=== PATIENT | female | born 1990 | race Caucasian/White ===

== ENCOUNTER 2018-12-28 11:06 | Emergency (ER) | payer BC ==
[~2018-12-28] VITALS: Ht 167.6 cm; Wt 49.9 kg
[2018-12-28] MEDS ORDERED: CLIN300 PO (12:07)
== END 2018-12-28 12:17 | disposition home or self-care (01) ==
LOC: ER 11:06
DX: K04.7 Periapical abscess without sinus (principal); Z88.0 Allergy status to penicillin
CPT/HCPCS: 41800; 96374-59; 99282-25

== ENCOUNTER → 2020-03-08 | Outpatient (CLI) | payer BC ==
[~2020-03-08] MED LIST: CLIN300 PO
[2020-03-08 11:31] LABS: Source, Urine Clean Catch
[2020-03-08 14:08] LABS: Amorphous Mod (0-Heavy); Bacteria Few /hpf; Squamous Epithelial Cells Few /hpf (Few)
== END | disposition home or self-care (01) ==
LOC: LAB 10:38 → LAB SHORT 10:38
PROVIDERS: Obstetrics & Gynecology
DX: Z34.01 Encounter for supervision of normal first pregnancy, first trimester (principal)
CPT/HCPCS: 81015; 87086

== ENCOUNTER → 2020-07-11 | Outpatient (CLI) | payer BC ==
[~2020-07-11] MED LIST changes: +Aspir 8181 MG PO; +IBU800 M1 PO; +PRENATAL TABLE1 EAC2 PO; +Percocet 5-3251 EACH PO
[2020-07-11 13:29] LABS: BASOPHILS ABSOLUTE AUTO 0.05 K/mm3 (0.00-0.23); BASOPHILS PERCENT AUTO 1 % (0-2); EOSINOPHILS ABSOLUTE AUTO 0.08 K/mm3 (0.00-0.68); EOSINOPHILS PERCENT AUTO 1 % (0-6); Hematocrit 35.2 % (33.0-51.0); Hemoglobin 11.7 g/dL (11.5-16.0); IMMATURE GRAN ABSOLUTE AUTO 0.12 K/mm3 (0.00-0.10); IMMATURE GRAN PERCENT AUTO 1 % (0-1); LYMPHOCYTES ABSOLUTE AUTO 1.45 K/mm3 (0.84-5.20); LYMPHOCYTES PERCENT AUTO 16 % (21-46); MONOCYTES ABSOLUTE AUTO 0.57 K/mm3 (0.16-1.47); MONOCYTES PERCENT AUTO 6 % (4-13); Mean Corpuscular HGB 33.2 pg (26.0-34.0); Mean Corpuscular HGB Conc 33.2 g/dL (31.5-36.5); Mean Corpuscular Volume 100 fL (80-100); Mean Platelet Volume 10.1 fL (9.1-12.4); NEUTROPHILS ABSOLUTE AUTO 7.03 K/mm3 (1.96-9.15); NEUTROPHILS PERCENT AUTO 76 % (41-73); Platelet Count 174 K/mm3 (150-400); RDW Coefficient Variation 12.6 % (11.7-14.2); RDW Standard Deviation 46.4 fL (35.1-46.3); Red Blood Cell Count 3.52 M/mm3 (3.80-5.20)
== END | disposition home or self-care (01) ==
LOC: LAB SHORT 10:10 → PLD 10:10
PROVIDERS: Obstetrics & Gynecology
DX: Z34.02 Encounter for supervision of normal first pregnancy, second trimester (principal)
CPT/HCPCS: 82950; 85025

== ENCOUNTER 2020-09-11 08:50 | Inpatient (IN) | payer BC ==
[~2020-09-11] VITALS: Ht 167.6 cm; Wt 61.8 kg
[~2020-09-11 08:50] MED LIST changes: -IBU800 M1 PO; -Percocet 5-3251 EACH PO
[2020-09-11 09:23] LABS: BASOPHILS ABSOLUTE AUTO 0.03 K/mm3 (0.00-0.23); BASOPHILS PERCENT AUTO 1 % (0-2); EOSINOPHILS ABSOLUTE AUTO 0.09 K/mm3 (0.00-0.68); EOSINOPHILS PERCENT AUTO 2 % (0-6); Hematocrit 37.7 % (33.0-51.0); Hemoglobin 12.4 g/dL (11.5-16.0); IMMATURE GRAN ABSOLUTE AUTO 0.03 K/mm3 (0.00-0.10); IMMATURE GRAN PERCENT AUTO 1 % (0-1); LYMPHOCYTES ABSOLUTE AUTO 1.73 K/mm3 (0.84-5.20); LYMPHOCYTES PERCENT AUTO 28 % (21-46); MONOCYTES ABSOLUTE AUTO 0.58 K/mm3 (0.16-1.47); MONOCYTES PERCENT AUTO 10 % (4-13); Mean Corpuscular HGB 30.8 pg (26.0-34.0); Mean Corpuscular HGB Conc 32.9 g/dL (31.5-36.5); Mean Corpuscular Volume 94 fL (80-100); Mean Platelet Volume 11.6 fL (9.1-12.4); NEUTROPHILS ABSOLUTE AUTO 3.64 K/mm3 (1.96-9.15); NEUTROPHILS PERCENT AUTO 60 % (41-73); Platelet Count 141 K/mm3 (150-400); RDW Coefficient Variation 12.3 % (11.7-14.2); RDW Standard Deviation 42.2 fL (35.1-46.3); Red Blood Cell Count 4.02 M/mm3 (3.80-5.20)
--- NOTE | 2020-09-11 11:27 | NUR ---
09/11/20 Demond7 Xena Velázquez 1051 DELIVERY BABY A VIABLE MALE INFANT, WEIGHT 2925GM, 6^ 7OZ, HEAD 13.5 INCHES, CHEST 12.5 INCHES, LENGTH 18.75 INCHES, APGARS 9/9, 1052 DELIVERY BABY B, VIABLE FEMALE WEIGHT 2640 5# 13OZ, HEAD 13.75 INCHES, CHEST 12 INCHES, LENGTH 18 INCHES, APGARS 9/9, PLACENTA SENT TO PATHOLOGY
--- NOTE | 2020-09-11 16:37 | NUR ---
RN/LC ROUNDED TO HELP W/ . PT STATES IS GOING WELL. SHE HAS BEEN ONE BABY AT A TIME IN [facility], THEN FOB IS SUPPLEMENTING BABY W/ FORMULA AFTER BREASTFEED WHILE MOM LATCHES SECOND BABY. PT DENIES PAIN W/ FEEDING. INSTRUCTED PT ON CORRECT POSITIONING, LATCHING, NIPPLE SHAPE AFTER FEED, AND FREQUENCY OF FEEDING. REVIEWED GUIDE TO BOOKLET. PT AND SO LOVING W/ TWINS AND EACH OTHER, BOTH DENY ANY FURTHER QUESTIONS OR CONCERNS.
--- NOTE | 2020-09-11 18:30 | NUR ---
PT HAD PRIMARY C/S THIS AM FOR BREECH PRESENTATION. PT HAS 18G SL IN LRA, BACK IN PLACE DRAINING CLEAR/YELLOW URINE. PT HAS BEEN MEDICATED FOR PAIN ACCORDING TO EMAR. MEFIX DRESSING ON ABD WITH LIGHT DRAINAGE ON LEFT SIDE. PT TOLRATED LUNCH AND DINNER WELL, CURRENTLY SITTING UP IN CHAIR NB WELL.
[2020-09-12 05:19] LABS: Hematocrit 25.4 % (33.0-51.0); Hemoglobin 8.7 g/dL (11.5-16.0); Mean Corpuscular HGB 31.4 pg (26.0-34.0); Mean Corpuscular HGB Conc 34.3 g/dL (31.5-36.5); Mean Corpuscular Volume 92 fL (80-100); Mean Platelet Volume 10.7 fL (9.1-12.4); Platelet Count 131 K/mm3 (150-400); RDW Coefficient Variation 12.2 % (11.7-14.2); RDW Standard Deviation 41.2 fL (35.1-46.3); Red Blood Cell Count 2.77 M/mm3 (3.80-5.20); White Blood Cell Count 14.46 K/mm3 (4.00-11.30)
--- NOTE | 2020-09-12 08:45 | NUR ---
MICHEAL HOWARD ASSUMED CARE
--- NOTE | 2020-09-12 10:30 | NUR ---
ASSUMED CARE OF PT
--- NOTE | 2020-09-12 11:06 | NUR ---
PT UP TO SHOWER AFTER CATHETER REMOVED, AMBULATED 1 PERSON ASSIST TO SHOWER, TOLERATED WELL, IN ROOM ASSISTING WITH CARE FOR BABIES
--- NOTE | 2020-09-12 13:39 | NUR ---
REQUESTION PAIN MEDS, 1 POOJA 5MG AND IBUPROFEN 800MG PO GIVEN
--- NOTE | 2020-09-12 14:39 | NUR ---
REPT TO Irma CHARLTON RN
[2020-09-13] MEDS ORDERED: Percocet 5-3251 EACH PO (10:00)
[2020-09-13] MEDS ORDERED: IBU800 M1 PO (10:00)
--- NOTE | 2020-09-20 13:11 | NUR ---
LATE ENTRY FOR CORRECTION WEIGHT BABY A 2925 6 7 NOT 2975 6 9 PER EMR AND OR NOTE
--- NOTE | 2020-10-01 15:43 | NUR ---
LATE ENTRY PER ANES RECORD
== END 2020-09-13 11:00 | disposition home or self-care (01) | DRG 788 ==
LOC: BC 08:50
PROVIDERS: ADMIT Obstetrics & Gynecology
PROC: 10D00Z1 Extraction of Products of Conception, Low, Open Approach (ICD-10-PCS; principal; 2020-09-11 10:30)
DX: O32.1XX0 Maternal care for breech presentation, not applicable or unspecified (principal); O30.043 Twin pregnancy, dichorionic/diamniotic, third trimester; Z37.2 Twins, both liveborn; Z3A.38 38 weeks gestation of pregnancy
CPT/HCPCS: 36415; 85025; 85027; 86850; 86900; 86901; 88307; A9270; J0690; J1885; J2370; J2405; J2590; J2704; J2765; J3010; J7120

== ENCOUNTER → 2023-07-23 | Outpatient (CLI) | payer OTHER ==
[~2023-07-23] MED LIST changes: +IBU800 M1 PO; +Percocet 5-3251 EACH PO
[2023-07-30 07:01] LABS: HPV GENOTYPE 16 Not Detected; HPV GENOTYPE 18 Not Detected; HPV HIGH RISK Not Detected; HPV SOURCE Cervical
== END ==
LOC: LAB SHORT 18:02 → LAB 18:02
PROVIDERS: Advanced Practice Midwife
DX: Z01.419 Encounter for gynecological examination (general) (routine) without abnormal findings (principal)
CPT/HCPCS: 87624; G0123

== ENCOUNTER → 2024-08-10 | Outpatient (CLI) | payer OTHER ==
[2024-08-10 14:29] LABS: BASOPHILS ABSOLUTE AUTO 0.03 K/mm3 (0.00-0.23); BASOPHILS PERCENT AUTO 0 % (0-2); EOSINOPHILS ABSOLUTE AUTO 0.09 K/mm3 (0.00-0.68); EOSINOPHILS PERCENT AUTO 1 % (0-6); Hematocrit 35.8 % (33.0-51.0); Hemoglobin 12.3 g/dL (11.5-16.0); IMMATURE GRAN ABSOLUTE AUTO 0.08 K/mm3 (0.00-0.10); IMMATURE GRAN PERCENT AUTO 1 % (0-1); LYMPHOCYTES ABSOLUTE AUTO 1.36 K/mm3 (0.84-5.20); LYMPHOCYTES PERCENT AUTO 16 % (21-46); MONOCYTES ABSOLUTE AUTO 0.56 K/mm3 (0.16-1.47); MONOCYTES PERCENT AUTO 7 % (4-13); Mean Corpuscular HGB 34.2 pg (26.0-34.0); Mean Corpuscular HGB Conc 34.4 g/dL (31.5-36.5); Mean Corpuscular Volume 99 fL (80-100); Mean Platelet Volume 9.7 fL (9.1-12.4); NEUTROPHILS ABSOLUTE AUTO 6.29 K/mm3 (1.96-9.15); NEUTROPHILS PERCENT AUTO 75 % (41-73); Platelet Count 212 K/mm3 (150-400); RDW Coefficient Variation 13.3 % (11.7-14.2); RDW Standard Deviation 48.9 fL (35.1-46.3); White Blood Cell Count 8.41 K/mm3 (4.00-11.30)
== END | disposition home or self-care (01) ==
LOC: LAB SHORT 10:15 → LAB 10:15
PROVIDERS: Obstetrics & Gynecology
DX: O09.93 Supervision of high risk pregnancy, unspecified, third trimester (principal)
CPT/HCPCS: 82950; 85025

== ENCOUNTER 2024-10-03 11:15 | Inpatient (IN) | payer OTHER ==
[~2024-10-03] VITALS: Ht 167.6 cm; Wt 61.0 kg
[2024-10-03 11:30] VITALS: BP 108/65
[2024-10-03 11:46] VITALS: BP 126/77
[2024-10-03 12:02] VITALS: BP 117/76
[2024-10-03] MEDS ORDERED: Clindamycin 600mg in D5W 50 ML IV SCH (12:10)
[2024-10-03 12:15] VITALS: BP 117/65
[2024-10-03] MEDS ORDERED: Vancomycin HCL 1,000 MG in NS 250 ML IV SCH (12:15)
[2024-10-03 12:28] LABS: BASOPHILS ABSOLUTE AUTO 0.02 K/mm3 (0.00-0.23); BASOPHILS PERCENT AUTO 0 % (0-2); EOSINOPHILS ABSOLUTE AUTO 0.08 K/mm3 (0.00-0.68); EOSINOPHILS PERCENT AUTO 1 % (0-6); Hematocrit 35.4 % (33.0-51.0); Hemoglobin 12.3 g/dL (11.5-16.0); IMMATURE GRAN ABSOLUTE AUTO 0.07 K/mm3 (0.00-0.10); IMMATURE GRAN PERCENT AUTO 1 % (0-1); LYMPHOCYTES ABSOLUTE AUTO 1.19 K/mm3 (0.84-5.20); LYMPHOCYTES PERCENT AUTO 11 % (21-46); MONOCYTES ABSOLUTE AUTO 0.65 K/mm3 (0.16-1.47); MONOCYTES PERCENT AUTO 6 % (4-13); Mean Corpuscular HGB 33.7 pg (26.0-34.0); Mean Corpuscular HGB Conc 34.7 g/dL (31.5-36.5); Mean Corpuscular Volume 97 fL (80-100); Mean Platelet Volume 10.4 fL (9.1-12.4); NEUTROPHILS ABSOLUTE AUTO 9.15 K/mm3 (1.96-9.15); NEUTROPHILS PERCENT AUTO 82 % (41-73); Platelet Count 190 K/mm3 (150-400); RDW Coefficient Variation 12.9 % (11.7-14.2); RDW Standard Deviation 45.8 fL (35.1-46.3); Red Blood Cell Count 3.65 M/mm3 (3.80-5.20); White Blood Cell Count 11.16 K/mm3 (4.00-11.30)
[2024-10-03] MEDS ORDERED: Lactated Ringer's 1,000 ML IV SCH ×2 (12:40)
[2024-10-03] MEDS ORDERED: Ondansetron HCl 2 MG / ML 2ML Vial IV PRN (12:40)
[2024-10-03] MEDS ORDERED: Acetaminophen 500 MG Tab PO PRN (12:40)
[2024-10-03] MEDS ORDERED: Misoprostol 200 MCG Tab BC PRN (12:40)
[2024-10-03] MEDS ORDERED: Lactated Ringer's 1,000 ML IV PRN (12:40)
[2024-10-03] MEDS ORDERED: Oxytocin 10 Unit / ML Vial IM PRN (12:40)
[2024-10-03] MEDS ORDERED: Methylergonovine Maleate 0.2MG / ML 1ML Amp IM PRN (12:40)
[2024-10-03] MEDS ORDERED: ePHEDrine Sulfate 50 MG/ML 1ML Injection XX PRN (12:40)
[2024-10-03] MEDS ORDERED: Carboprost Tromethamine 250 MCG/ML 1ML Amp IM PRN (12:40)
[2024-10-03] MEDS ORDERED: Tranexamic Acid 100 ML IV SCH (12:40)
[2024-10-03] MEDS ORDERED: FentaNYL 2mcg/ml-Bup 0.1% Epd 250 ML EPI PRN (12:40)
[2024-10-03] MEDS ORDERED: OXYTOCIN/RINGER'S LACTATE 500 ML IV PRN (12:40)
[2024-10-03] MEDS ORDERED: Calcium Carbonate 500 MG Tab Chew PO SCH (12:40)
[2024-10-03] MEDS ORDERED: Misoprostol 200 MCG Tab PR PRN (12:40)
[2024-10-03] MEDS ORDERED: Lactated Ringer's 1,000 ML IV ONE (12:49)
[2024-10-03 13:03] VITALS: BP 113/57
[2024-10-03 17:16] VITALS: BP 108/58
== END 2024-10-03 18:10 | disposition home or self-care (01) | DRG 833 ==
LOC: OBS 11:15 → BC 11:15 → OBS 11:57 → BC 13:00
PROVIDERS: ADMIT Obstetrics & Gynecology
DX: O60.03 Preterm labor without delivery, third trimester (principal); Z3A.36 36 weeks gestation of pregnancy; O24.410 Gestational diabetes mellitus in pregnancy, diet controlled; O34.211 Maternal care for low transverse scar from previous cesarean delivery; O09.813 Supervision of pregnancy resulting from assisted reproductive technology, third trimester
CPT/HCPCS: 36415; 59025; 81003; 85025; 86762; 86850; 86900; 86901; 99214; J3370; J7050; J7120

== ENCOUNTER → 2024-10-04 | Outpatient (CLI) | payer OTHER | END | disposition home or self-care (01) | LOC: LAB SHORT 09:31 → LAB 09:31 | DX: O09.93 Supervision of high risk pregnancy, unspecified, third trimester (principal) | CPT/HCPCS: 87081; 87150; 87184 ==

== ENCOUNTER 2024-10-23 05:56 | Inpatient (IN) | payer OTHER ==
[~2024-10-23] VITALS: Ht 167.6 cm; Wt 61.4 kg
[2024-10-23] VITALS (18 sets, daily range): BP systolic 93–126; BP diastolic 60–92
[~2024-10-23 05:56] MED LIST changes: +Lactated Ringer's 1,000 ML IV SCH
[2024-10-23] MEDS ORDERED: CeFAZolin Sodium 2,000 MG in NS 100 ML IV SCH (06:00)
[2024-10-23] MEDS ORDERED: Lactated Ringer's 1,000 ML IV SCH (06:30)
[2024-10-23 06:39] LABS: BASOPHILS ABSOLUTE AUTO 0.04 K/mm3 (0.00-0.23); BASOPHILS PERCENT AUTO 1 % (0-2); EOSINOPHILS ABSOLUTE AUTO 0.11 K/mm3 (0.00-0.68); EOSINOPHILS PERCENT AUTO 2 % (0-6); Hematocrit 39.1 % (33.0-51.0); Hemoglobin 13.1 g/dL (11.5-16.0); IMMATURE GRAN ABSOLUTE AUTO 0.07 K/mm3 (0.00-0.10); IMMATURE GRAN PERCENT AUTO 1 % (0-1); LYMPHOCYTES ABSOLUTE AUTO 1.74 K/mm3 (0.84-5.20); LYMPHOCYTES PERCENT AUTO 25 % (21-46); MONOCYTES ABSOLUTE AUTO 0.69 K/mm3 (0.16-1.47); MONOCYTES PERCENT AUTO 10 % (4-13); Mean Corpuscular HGB 32.7 pg (26.0-34.0); Mean Corpuscular HGB Conc 33.5 g/dL (31.5-36.5); Mean Corpuscular Volume 98 fL (80-100); Mean Platelet Volume 10.2 fL (9.1-12.4); NEUTROPHILS ABSOLUTE AUTO 4.44 K/mm3 (1.96-9.15); NEUTROPHILS PERCENT AUTO 63 % (41-73); Platelet Count 188 K/mm3 (150-400); RDW Coefficient Variation 12.3 % (11.7-14.2); RDW Standard Deviation 44.1 fL (35.1-46.3); Red Blood Cell Count 4.01 M/mm3 (3.80-5.20); White Blood Cell Count 7.09 K/mm3 (4.00-11.30)
[2024-10-23] MEDS ORDERED: Metoclopramide HCl 5MG / ML 2ML Vial IV SCH (06:45)
[2024-10-23] MEDS ORDERED: Citric Acid/Sodium Citrate 30 ML BTL PO SCH (06:45)
[2024-10-23] MEDS ORDERED: FentaNYL Citrate 50 MCG/ML 2 ML Injection ONE (07:31)
[2024-10-23] MEDS ORDERED: Phenylephrine HCl 100 MCG/ML-NS 10MLSYR (1MG/10ML) ONE (07:38)
[2024-10-23] MEDS ORDERED: Dexamethasone Sod Phos 10 MG/ML 1ML VIAL ONE (07:38)
[2024-10-23] MEDS ORDERED: Ondansetron HCl 2 MG / ML 2ML Vial ONE (07:38)
[2024-10-23] MEDS ORDERED: Oxytocin 10 Unit / ML Vial ONE ×2 (07:45→08:16)
[2024-10-23] MEDS ORDERED: Ketorolac Tromethamine 30mg Vial ONE (07:55)
--- NOTE | 2024-10-23 08:01 | NUR ---
10/23/24 0801 Gale Morris VIABLE BABY BOY BORN AT 0750.
[2024-10-23] MEDS ORDERED: OxyCODONE HCL 5 MG TAB PO PRN (08:20)
[2024-10-23] MEDS ORDERED: OXYTOCIN/RINGER'S LACTATE 500 ML IV SCH ×2 (08:20→08:25)
[2024-10-23] MEDS ORDERED: Acetaminophen 500 MG Tab PO PRN (08:25)
[2024-10-23] MEDS ORDERED: Simethicone 80 MG Chew PO PRN (08:25)
[2024-10-23] MEDS ORDERED: Promethazine HCl 25 MG Tab PO PRN (08:25)
[2024-10-23] MEDS ORDERED: Carboprost Tromethamine 250 MCG/ML 1ML Amp IM PRN (08:25)
[2024-10-23] MEDS ORDERED: Magnesium Hydroxide Conc 10 ML UDC PO PRN (08:30)
[2024-10-23] MEDS ORDERED: DiphenhydrAMINE HCL 25 MG Cap PO PRN (08:30)
[2024-10-23] MEDS ORDERED: Rho(D) Immune Globulin 300 MCG / SYR IM SCH (08:30)
[2024-10-23] MEDS ORDERED: Measles/Mumps/Rubella Vaccine 0.5 ML Vial SC SCH (08:30)
[2024-10-23] MEDS ORDERED: Misoprostol 200 MCG Tab PR PRN (08:30)
[2024-10-23] MEDS ORDERED: Metoclopramide HCl 10 MG Tab PO PRN (08:35)
[2024-10-23] MEDS ORDERED: Ondansetron HCl 2 MG / ML 2ML Vial IV PRN (08:35)
[2024-10-23] MEDS ORDERED: Methylergonovine Maleate 0.2MG / ML 1ML Amp IM PRN (08:35)
[2024-10-23] MEDS ORDERED: Lanolin Cream TOP PRN (08:35)
[2024-10-23] MEDS ORDERED: Ketorolac Tromethamine 30mg Vial IV SCH (09:00)
[2024-10-23] MEDS ORDERED: Prenatal Vit/FE Fumarate/FA 1 Tab PO SCH (09:00)
[2024-10-23] MEDS ORDERED: Docusate Sodium 100 MG Cap PO SCH (09:00)
[2024-10-23] MEDS ORDERED: Ibuprofen 400 MG Tab PO SCH (16:00)
[2024-10-24 00:54] VITALS: BP 119/64
[2024-10-24] MEDS ORDERED: Ketorolac Tromethamine 30mg Vial IV ONE (03:05)
[2024-10-24 05:02] VITALS: BP 120/75
[2024-10-24] MEDS ORDERED: Citric Acid/Sodium Citrate 30 ML BTL PO SCH (06:45)
[2024-10-24 06:52] LABS: BASOPHILS ABSOLUTE AUTO 0.05 K/mm3 (0.00-0.23); BASOPHILS PERCENT AUTO 0 % (0-2); EOSINOPHILS ABSOLUTE AUTO 0.09 K/mm3 (0.00-0.68); EOSINOPHILS PERCENT AUTO 1 % (0-6); Hematocrit 35.5 % (33.0-51.0); Hemoglobin 11.9 g/dL (11.5-16.0); IMMATURE GRAN ABSOLUTE AUTO 0.09 K/mm3 (0.00-0.10); IMMATURE GRAN PERCENT AUTO 1 % (0-1); LYMPHOCYTES ABSOLUTE AUTO 2.64 K/mm3 (0.84-5.20); LYMPHOCYTES PERCENT AUTO 16 % (21-46); MONOCYTES ABSOLUTE AUTO 1.17 K/mm3 (0.16-1.47); MONOCYTES PERCENT AUTO 7 % (4-13); Mean Corpuscular HGB 32.2 pg (26.0-34.0); Mean Corpuscular HGB Conc 33.5 g/dL (31.5-36.5); Mean Corpuscular Volume 96 fL (80-100); Mean Platelet Volume 10.7 fL (9.1-12.4); NEUTROPHILS ABSOLUTE AUTO 12.84 K/mm3 (1.96-9.15); NEUTROPHILS PERCENT AUTO 76 % (41-73); Platelet Count 178 K/mm3 (150-400); RDW Coefficient Variation 12.1 % (11.7-14.2); RDW Standard Deviation 41.8 fL (35.1-46.3); White Blood Cell Count 16.88 K/mm3 (4.00-11.30)
[2024-10-24 08:25] VITALS: BP 109/74
[2024-10-24 11:33] VITALS: BP 122/83
[2024-10-24 15:23] VITALS: BP 113/76
[2024-10-24 20:41] VITALS: BP 120/80
[2024-10-25 00:20] VITALS: BP 117/69
[2024-10-25] MEDS ORDERED: Ibuprofen 400 MG Tab PO PRN (06:06)
[2024-10-25 07:43] VITALS: BP 113/66
== END 2024-10-25 09:49 | disposition home or self-care (01) | DRG 788 ==
LOC: BC 05:56
PROVIDERS: ADMIT Obstetrics & Gynecology
PROC: 10D00Z1 Extraction of Products of Conception, Low, Open Approach (ICD-10-PCS; principal; 2024-10-23 07:30)
DX: O34.211 Maternal care for low transverse scar from previous cesarean delivery (principal); O24.429 Gestational diabetes mellitus in childbirth, unspecified control; Z3A.39 39 weeks gestation of pregnancy; Z37.0 Single live birth; O32.1XX0 Maternal care for breech presentation, not applicable or unspecified; Z88.0 Allergy status to penicillin; Z79.82 Long term (current) use of aspirin
CPT/HCPCS: 36415; 82947; 85025; 86850; 86900; 86901; 86923; A9270; J0690; J1100; J1885; J2371; J2405; J2590; J2765; J3010; J7120